=== PATIENT | female | born 1990 | race Caucasian/White ===

== ENCOUNTER 2016-11-20 03:01 | Inpatient (IN) | payer MEDICAID ==
[2016-11-20 04:05] LABS: ABSOLUTE BASOPHILS # (AUTO) 0.2 10^3/uL (0.0-0.2); ABSOLUTE EOSINOPHILS # (AUTO) 0.1 10^3/uL (0.0-0.6); ABSOLUTE LYMPHOCYTES (AUTO) 3.1 10^3/uL (0.5-4.7); ABSOLUTE MONOCYTES (AUTO) 1.1 10^3/uL (0.1-1.4); ABSOLUTE NEUT (AUTO) 7.1 10^3/uL (1.7-8.2); BASOPHILS % (AUTO) 1.3 % (0-2); EOSINOPHILS % (AUTO) 1.3 % (0-6); HEMOGLOBIN 10.7 g/dL (12.0-15.5); HGB HCT DIFFERENCE -1.9; LYMPHOCYTES % (AUTO) 26.9 % (13-45); MEAN CORPUSCULAR HEMOGLOBIN 26.1 pg (27.0-33.4); MEAN CORPUSCULAR HGB CONC 31.5 g/dL (32.0-36.0); MEAN CORPUSCULAR VOLUME 83 fl (80-97); MONOCYTES % (AUTO) 9.8 % (3-13); SEGMENTED NEUTROPHILS % (AUTO) 60.7 % (42-78); WHITE BLOOD COUNT 11.7 10^3/uL (4.0-10.5)
[2016-11-20 04:06] LABS: APPEARANCE,URINE SLIGHTLY-CLOUDY; BILIRUBIN,URINE NEGATIVE (NEGATIVE); GLUCOSE, URINE NEGATIVE (NEGATIVE); KETONES,URINE NEGATIVE (NEGATIVE); LEUKOCYTE ESTERASE,URINE MODERATE (NEGATIVE); NITRITE,URINE NEGATIVE (NEGATIVE); PROTEIN,URINE NEGATIVE (NEGATIVE); UROBILINOGEN,URINE NEGATIVE mg/dL (<2.0)
[2016-11-20] MEDS ORDERED: CITRIC ACID/SODIUM CITRATE ORAL SOLN 15 ML UDCUP ONE (04:21)
[2016-11-20] MEDS ORDERED: METOCLOPRAMIDE HCL INJ/PF 10 MG/2 ML SDV ONE ×2 (04:22→10:19)
[2016-11-20] MEDS ORDERED: CEFAZOLIN 2 GM/D5W RTU 2 GM/50 ML RTUPB IV ONE (04:22)
[2016-11-20] MEDS ORDERED: LIDOCAINE 2%/EPINEPHRINE INJ 20 ML VIAL ONE (04:22)
[2016-11-20] MEDS ORDERED: FAMOTIDINE INJ/PF 20 MG/2 ML SDV IV ONE (04:22)
[2016-11-20] MEDS ORDERED: SODIUM BICARBONATE 8.4% INJ 50 MEQ/50 ML DISP.SYRIN ONE (04:22)
[2016-11-20] MEDS ORDERED: RINGERS SOLUTION,LACTATED 1,000 ML IV PRN (04:27)
[2016-11-20 04:30] LABS: URINE BARBITURATES SCREEN NEGATIVE; URINE METHADONE SCREEN NEGATIVE; URINE OPIATES LOW NEGATIVE; URINE PHENCYCLIDINE SCREEN NEGATIVE
[2016-11-20] MEDS ORDERED: ONDANSETRON HCL INJ/PF 4 MG/2 ML SDV ONE ×2 (04:37→10:19)
[2016-11-20] MEDS ORDERED: MIDAZOLAM 2 MG/2 ML INJ ONE (04:37)
[2016-11-20] MEDS ORDERED: OXYTOCIN 10 UNIT/ML VIAL ONE (04:37)
[2016-11-20] MEDS ORDERED: OXYTOCIN/NORMAL SALINE 0 UNIT/0 ML RTUINJ ONE (04:37)
[2016-11-20] MEDS ORDERED: FENTANYL CITRATE INJ/PF 100 MCG/2 ML AMPUL ONE (04:37)
[2016-11-20] MEDS ORDERED: EPHEDRINE SULFATE INJ 50 MG/1 ML AMPULE ONE (04:44)
--- NOTE | 2016-11-20 04:49 | RADIOLOGY REPORT (SQ) ---
EXAM DESCRIPTION: U/S OB LIMITED COMPLETED DATE/TIME: 11/20/2016 4:25 am REASON FOR STUDY: no PNC; EGA, placenta loc, presentation, EFW COMPARISON: 11/27/2015. TECHNIQUE: Limited transabdominal grayscale ultrasound for evaluation of specific requested obstetri zelda parameters. LIMITATIONS: None. FINDINGS: CERVICAL LENGTH: Not applicable. Greater than 20 weeks. Need transvaginal study if indicat ed. Closed. FHR: 141 beats per minute. Placental location: Fundal. Estimated weight: 4380 g at 35 weeks and 6 days based on biometrics. PRESENTATION: Cephalic. OTHER: No other significant findings. IMPRESSION: LIMITED OBSTETRICAL ULTRASOUND WITH MEASURED PARAMETERS DELINEATED ABOVE. Trimester of : Third trimester - 28 weeks to delivery. TECHNICAL DOCUMENTATION: JOB ID: [id number] [employer]- All Rights Reserved
[2016-11-20 05:00] LABS: ADD HIVPANEL? NO; HIV (1 AND 2) ANTIBODY NEGATIVE (NEGATIVE)
[2016-11-20 05:35] LABS: CHLAM PCR NOT DETECTED (NOT DETECT)
[2016-11-20] MEDS ORDERED: METHYLERGONOVINE MALEATE INJ/PF 0.2 MG/1 ML AMPULE ONE (05:53)
[2016-11-20] MEDS ORDERED: CEFAZOLIN 2 GM/D5W RTU 2 GM/50 ML RTUPB IV PRN (06:00)
[2016-11-20] MEDS ORDERED: SIMETHICONE 80 MG TAB.CHEW PO PRN (06:55)
[2016-11-20] MEDS ORDERED: DIPH/PERTUSS(ACELL)/TETANUS VAC/PF 0.5 ML SYR (>=10YO) IM PRN (06:55)
[2016-11-20] MEDS ORDERED: OXYTOCIN/NORMAL SALINE 1,000 ML IV PRN (06:55)
[2016-11-20] MEDS ORDERED: PROMETHAZINE HCL INJ 25 MG/1 ML VIAL IV PRN ×3 (06:55→07:53)
[2016-11-20] MEDS ORDERED: MEASLES,MUMPS&RUBELLA VACC/PF 0.5 ML VIAL SUBCUT PRN (06:55)
[2016-11-20] MEDS ORDERED: KETOROLAC TROMETHAMINE INJ/PF 30 MG/1 ML SDV IV ONE (07:15)
[2016-11-20] MEDS ORDERED: HYDROMORPHONE HCL INJ/PF 2 MG/ML AMPULE ONE (07:46)
[2016-11-20] MEDS ORDERED: HYDROMORPHONE HCL INJ/PF 2 MG/ML AMPULE IV PRN (07:52)
[2016-11-20] MEDS ORDERED: FENTANYL CITRATE INJ/PF 100 MCG/2 ML AMPUL IV PRN ×3 (07:53)
[2016-11-20] MEDS ORDERED: DIPHENHYDRAMINE HCL 50 MG/ML VIAL IV PRN (07:53)
[2016-11-20] MEDS ORDERED: OXYCODONE-ACETAMINOPHEN 5-325 MG TABLET PO PRN ×2 (07:53)
[2016-11-20] MEDS ORDERED: MORPHINE SULFATE 10 MG/ML INJ IV PRN (07:53)
[2016-11-20] MEDS ORDERED: MEPERIDINE HCL/PF INJ 25 MG/1 ML DISP.SYRIN IV PRN (07:53)
[2016-11-20] MEDS ORDERED: PROMETHAZINE HCL INJ 25 MG/1 ML VIAL IM PRN (07:53)
--- NOTE | 2016-11-20 08:28 | OPERATIVE REPORT E ---
Operative Report NAME: DALIA VAIL : 1990 AGE: 26Y DATE OF SURGERY: 11/20/2016 ROOM: LR200 PREOPERATIVE DIAGNOSIS: Intrauterine at 38 weeks and 3 days, previous section, no care, desires repeat section. POSTOPERATIVE DIAGNOSIS: OPERATION: Low transverse hysterotomy section repeat with [place] tubal ligation. SURGEON: BRENDEN ZIMMERMAN M.D. ANESTHESIA: General. ANESTHESIOLOGIST: Dr. Benoit FINDINGS: Male in cephalic presentation with Apgars of 9 and 9, weight 4145 grams, 21 inches long. ESTIMATED BLOOD LOSS:: 800 mL. TISSUE REMOVED OR ALTERED: Placenta and bilateral fallopian tubes. INDICATIONS FOR STERILIZATION: The patient had came in with no care in this indicating that she desired to give the baby up for adoption. She indicated to several witnesses that she did, indeed, desire a tubal and she emphasized this to myself. Witnesses included Mireille Lewis RN, and Brigida Bell RN, as well as Dr. Benoit anesthesia, and the HR ADMINISTRATOR, Esperanza. PROCEDURE: Patient was taken to the operating room, prepared and draped in a normal sterile fashion in the supine position with a leftward tilt. A transverse skin incision was made with the scalpel and carried through to the underlying layer of fascia with the same scalpel. The fascia was incised in the midline and extended laterally with [place]. The fascia was then dissected from the rectus muscle sharply with [place] and the rectus muscle was divided. Peritoneal cavity was entered bluntly with good visualization of the bladder and the uterus. The bladder blade was inserted and the hysterotomy was nicked in the center and extended laterally with surgeon finger fracture. Attempt to deliver the infant head was difficult secondary to malpresentation so Kiwi was applied, one popoff and two applications. The infant's head was delivered with the second application of the Kiwi and the Kiwi was released. The was then delivered atraumatically. The nose and mouth were suctioned with a suction bulb and cord was clamped and cut and the infant was handed off to waiting multi site leasing consultant. The placenta was removed manually, the uterus was exteriorized and cleared of clots and debris. The hysterotomy was closed with 0 Monocryl in a running locked fashion. The second layer of the same suture was used to imbricate to ensure hemostasis. Attention was turned to the tubal ligation and the left fallopian tube was grasped with a [place] and the mesosalpinx was divided. Two pieces of 2-0 chromic were used to tie off a large section of the fallopian tube. There was a small amount of bleeding in the mesosalpinx and this was tied off with another piece of 2-0 chromic. The intermediate section of the fallopian tube was then cut with Metzenbaums and passed off the field. This was repeated on the right fallopian tube without difficulty. The uterus was returned to the abdomen. The hysterotomy was inspected and found to be hemostatic and the pedicles were all inspected and also found to be intact. The peritoneum and the rectus muscle were reapproximated with a mattress suture of 2-0 chromic. The fascia was closed with 0 Vicryl. The subcutaneous layer was closed with plain catgut. The skin was closed with jose. The patient tolerated the procedure well. Sponge, lap, and needle counts were correct x2 and the patient was taken to recovery in stable condition. DICTATING PHYSICIAN: BRENDEN ZIMMERMAN M.D. [id number] PHY#: [id number] ID: [id number] JOB#: [id number] ACCT: [id number] cc:BRENDEN ZIMMERMAN M.D. > MTDD
--- NOTE | 2016-11-20 09:29 | Delivery Summary ---
Del Sum A-C Datetime Report Generated by CPN: 11/20/2016 09:28 DELIVERY PERSONNEL Delivery Doctor:: Sherron Perry MD Anesthesiologist:: Gemini Benoit MD Labor and Delivery Nurse:: Brigida Lau RN Neonatal Nurse Practitioner:: DERRICK Rios Nursery Nurse:: Lamar Laurent RN Drive Thru Order Taker/CREDIT FRONT OFFICE DEVELOPER: ST [address] Thru Order Taker/CREDIT FRONT OFFICE DEVELOPER: Pastora Iglesias, ST MATERNAL INFORMATION Delivery Anesthesia: Spinal Medications After Delivery: Pitocin Drip 20 Units/1000ml NSS; Methergine 0.2mg IM Meds After Delivery Comment: 20 units pitocin Estimated Blood Loss (ml): 800 Maternal Complications: None LABOR SUMMARY EDC: 12/01/2016 00:00 No. Babies in Womb: 1 Attempted: No Labor Anesthesia: None LABOR INFORMATION Reason for Induction: Not Applicable Oxytocin: N/A Group B Beta Strep: Unknown Steroids Given: None Reason Steroids Not Administered: Not Applicable MEMBRANES Membranes Rupture Method: Artificial Rupture of Membranes: 11/20/2016 05:43 Length of Rupture (hr): 0.03 Amniotic Fluid Color: Light Meconium Amniotic Fluid Amount: Moderate Amniotic Fluid Odor: Normal VAGINAL DELIVERY Episiotomy: None Laceration Extension: N/A Laceration Type: None Laceration Repair: Not Applicable Sponge Count Correct: N/A Sharps Count Correct: N/A CSECTION DELIVERY Primary Indication: Repeat CSection Urgency: Non-Scheduled CSection Incidence: Repeat Labor: Labor Elective: Nonelective CSection Incision: Lower Uterine Transverse BABY A INFORMATION Delivery Date/Time: 11/20/2016 05:45 Method of Delivery: Born in Route : No : N/A Forceps: N/A Vacuum Extraction: N/A Shoulder Dystocia : No PRESENTATION/POSITION BABY A Presentation: Cephalic Cephalic Presentation: Vertex Breech Presentation: N/A PLACENTA INFORMATION BABY A Placenta Method of Delivery: Manual Removal Placenta Status: Delivered SCORES BABY A Heart Rate 1 min: >100 bpm Resp Effort 1 min: Good Cry Reflex Irritability 1 min: Cough or Sneeze or Pulls Away Muscle Tone 1 min: Active Motion Color 1 min: Blue/Pale Resuscitation Effort 1 min: N/A SCORE 1 MIN: 8 Heart Rate 5 min: >100 bpm Resp Effort 5 min: Good Cry Reflex Irritability 5 min: Cough or Sneeze or Pulls Away Muscle Tone 5 min: Active Motion Color 5 min: Body [place], Extremities Blue Resuscitation Effort 5 min: N/A SCORE 5 MIN: 9 INFANT INFORMATION BABY A Gestational Age at Delivery: 38.3 Gestational Status: Early Term- 37- 38.6 Weeks Outcome : Liveborn Infant Condition : Stable Sex: Male IDENTIFICATION BABY A Verification Date/Time: 11/20/2016 05:57 ID Band Number: [id number] Mother's Name Verified: Yes RN Verifying Infant: Fernando Groves, RN _ LLinnette Nolascob, RN WEIGHT/LENGTH BABY A Infant Birthweight (gm): 4145 Weight (lb): 9 Weight (oz): 2 Infant Length (in): 21.00 Length (cm): 53.34 CORD INFORMATION BABY A No. Cord Vessels: 3 Nuchal Cord : N/A Suction: None ASSESSMENT BABY A Complications: None Physical Findings at Delivery: Within Normal Limits Respirations: Appears Normal Skin to Skin: No (Annotations: Mother chooses not to see or hold . ) Director Behavioral Health/ALS Called : No Care By: DERRICK Lomeli Transferred To: Nursery BABY B INFORMATION : N/A
[2016-11-20] MEDS: OXYCODONE HCL IR 5 MG TABLET PO PRN ×2 (09:51→17:48)
[2016-11-20] MEDS: DOCUSATE SODIUM 100 MG CAPSULE PO SCH ×2 (09:53→17:48)
[2016-11-20] MEDS: PRENATAL VITAMIN W-O CA NO5/FE FUMARATE/FA CAPSULE PO SCH (09:53)
[2016-11-20] MEDS ORDERED: DEXAMETHASONE SOD PHOSPHATE INJ 4 MG/1 ML VIAL ONE (10:19)
[2016-11-20] MEDS ORDERED: VECURONIUM BROMIDE INJ 10 MG VIAL IV ONE (10:19)
[2016-11-20] MEDS ORDERED: KETOROLAC TROMETHAMINE 60 MG/2 ML SDV ONE (10:19)
[2016-11-20] MEDS ORDERED: SUCCINYLCHOLINE CHLORIDE INJ 200 MG/10 ML VIAL ONE (10:19)
--- NOTE | 2016-11-20 10:33 | PDOC PROGRESS REPORT ---
Subjective-OB Subjective: Post Delivery Day: 26 year old. Denies any needs at this time Sitting up in bed, pain under control, states she is hot, drinking fluids, no nausea, giving baby up for adoption Physical Exam (OB) Vital Signs: Temp Pulse Resp BP Pulse Ox 98.2 F 128 H 16 121/77 98 11/20/16 10:08 11/20/16 10:08 11/20/16 10:08 11/20/16 10:08 11/20/16 10:08 Intake & Output 11/19/16 11/20/16 11/21/16 06:59 06:59 06:59 Weight 110 kg Objective-Diagnostic Laboratory: 11/20/16 03:50 11/20/16 11/20/16 11/20/16 03:20 03:44 03:50 WBC 11.7 H RBC 4.10 Hgb 10.7 L Hct 34.0 L MCV 83 MCH 26.1 L MCHC 31.5 L RDW 15.0 H Plt Count 293 Seg Neutrophils % 60.7 Lymphocytes % 26.9 Monocytes % 9.8 Eosinophils % 1.3 Basophils % 1.3 Absolute Neutrophils 7.1 Absolute Lymphocytes 3.1 Absolute Monocytes 1.1 Absolute Eosinophils 0.1 Absolute Basophils 0.2 Urine Color YELLOW Urine Appearance SLIGHTLY-CLOUDY Urine pH 6.0 Ur Specific [place] 1.010 Urine Protein NEGATIVE Urine Glucose (UA) NEGATIVE Urine Ketones NEGATIVE Urine Blood LARGE H Urine Nitrite NEGATIVE Ur Leukocyte Esterase MODERATE H Blood Type O POSITIVE Antibody Screen NEGATIVE Assessment and Plan(PN) - Assessment and Plan (1) with plans to adopt out baby Qualifiers: Trimester: unspecified trimester Qualified Code(s): Z34.90 - Encounter for supervision of normal , unspecified, unspecified trimester Is this a current diagnosis for this admission?: Yes (2) No care in current Qualifiers: Trimester: unspecified trimester Qualified Code(s): O09.30 - Supervision of with insufficient care, unspecified trimester Is this a current diagnosis for this admission?: Yes (4) Anemia due to acute blood loss Is this a current diagnosis for this admission?: Yes - Time Spent with Patient Time with patient: Less than 15 minutes Medications reviewed and adjusted accordingly: Yes - Disposition Anticipated Discharge: Home Within: within 48 hours
[2016-11-20] MEDS: KETOROLAC TROMETHAMINE INJ/PF 30 MG/1 ML SDV IV SCH ×2 (13:25→23:28)
[2016-11-20] MEDS ORDERED: NIFEDIPINE 30 MG TAB.ER.24 PO ONE (13:30)
[2016-11-20 13:37] LABS: URINE CREATININE 343.6 mg/dL (16-327)
[2016-11-20 16:29] LABS: HGB HCT DIFFERENCE -0.8; MEAN CORPUSCULAR HEMOGLOBIN 26.4 pg (27.0-33.4); MEAN CORPUSCULAR HGB CONC 32.2 g/dL (32.0-36.0); MEAN CORPUSCULAR VOLUME 82 fl (80-97); RED BLOOD COUNT 3.17 10^6/uL (3.72-5.28); RED CELL DISTRIBUTION WIDTH 15.1 % (11.5-14.0); WHITE BLOOD COUNT 21.7 10^3/uL (4.0-10.5)
[2016-11-20 16:38] LABS: ALANINE AMINOTRANSFERASE 17 U/L (9-52); ALKALINE PHOSPHATASE 121 U/L (38-126); ANION GAP 8 (5-19); ASPARTATE AMINO TRANSFERASE 22 U/L (14-36); BILIRUBIN,DIRECT 0.3 mg/dL (0.0-0.4); BILIRUBIN,TOTAL 0.3 mg/dL (0.2-1.3); BLOOD UREA NITROGEN 11 mg/dL (7-20); CALCIUM 9.3 mg/dL (8.4-10.2); CARBON DIOXIDE 21 mmol/L (22-30); CHLORIDE 106 mmol/L (98-107); CREATININE RESULT 0.76 mg/dL (0.52-1.25); GLUCOSE 106 mg/dL (75-110); LDH 481 U/L (313-618); POTASSIUM 4.8 mmol/L (3.6-5.0); SODIUM 135.4 mmol/L (137-145); TOTAL PROTEIN 5.9 g/dL (6.3-8.2); URIC ACID 4.7 mg/dL (2.5-6.2)
[2016-11-20 17:15] LABS: BAND NEUTROPHILS % (MANUAL) 1 % (3-5); BASOPHILS % (MANUAL) 0 % (0-2); EOSINOPHILS % (MANUAL) 0 % (0-6); LYMPHOCYTES % (MANUAL) 6 % (13-45); TOTAL CELLS COUNTED 100
[2016-11-20 17:19] LABS: ANISOCYTOSIS SLIGHT; HYPOCHROMASIA SLIGHT; OVALOCYTES SLIGHT; POIKILOCYTOSIS SLIGHT; POLYCHROMASIA SLIGHT
[2016-11-20 17:20] LABS: HEMOGLOBIN 8.4 g/dL (12.0-15.5)
[2016-11-20] MEDS: CEFAZOLIN 2 GM/D5W RTU 2 GM/50 ML RTUPB IV SCH ×2 (20:04→23:29)
[2016-11-20] MEDS: RINGERS SOLUTION,LACTATED 1,000 ML IV PRN (23:29)
[2016-11-21] MEDS: CEFAZOLIN 2 GM/D5W RTU 2 GM/50 ML RTUPB IV SCH ×4 (05:20→23:47)
[2016-11-21] MEDS: IBUPROFEN 800 MG TABLET PO SCH ×4 (05:20→23:47)
[2016-11-21 07:12] LABS: HEMATOCRIT 19.4 % (36.0-47.0); HGB HCT DIFFERENCE -0.2; MEAN CORPUSCULAR HEMOGLOBIN 26.7 pg (27.0-33.4); MEAN CORPUSCULAR HGB CONC 32.8 g/dL (32.0-36.0); MEAN CORPUSCULAR VOLUME 81 fl (80-97); RED BLOOD COUNT 2.39 10^6/uL (3.72-5.28); RED CELL DISTRIBUTION WIDTH 15.1 % (11.5-14.0); WHITE BLOOD COUNT 11.6 10^3/uL (4.0-10.5)
[2016-11-21 07:20] LABS: HEMOGLOBIN 6.4 g/dL (12.0-15.5)
[2016-11-21 07:43] LABS: HEPATITIS C VIRUS AB <0.1 s/co ratio (0.0-0.9)
[2016-11-21] MEDS: PRENATAL VITAMIN W-O CA NO5/FE FUMARATE/FA CAPSULE PO SCH (09:37)
[2016-11-21] MEDS: RINGERS SOLUTION,LACTATED 1,000 ML IV PRN (09:37)
[2016-11-21] MEDS: DOCUSATE SODIUM 100 MG CAPSULE PO SCH ×2 (09:37→17:55)
--- NOTE | 2016-11-21 10:45 | PDOC PROGRESS REPORT ---
Subjective-OB Subjective: Post Delivery Day: 26 year old. Denies any needs at this time Physical Exam (OB) Vital Signs: Temp Pulse Resp BP Pulse Ox 98.0 F 77 16 101/52 L 97 11/21/16 08:00 11/21/16 08:00 11/21/16 08:00 11/21/16 08:00 11/21/16 08:00 Intake & Output 11/20/16 11/21/16 11/22/16 06:59 06:59 06:59 Output Total 1650 Balance -1650 Weight 110 kg - PIH/Pre-Eclampsia Clonus: Negative Headache: Absent Epigastric Pain: No Visual Changes: No - Incision: Dressing - Lochia Lochia Amount: Scant < 10 ml Lochia Color: Rubra/Red - Abdomen Description: Tender, Firm Hernia Present: No Bowel Sounds: Normoactive Flatus Presence: Present Stool: No Fundal Description: Firm, Midline Fundal Height: u/u - u/2 Objective-Diagnostic Laboratory: 11/21/16 06:49 11/20/16 15:42 11/20/16 11/20/16 11/21/16 15:42 15:42 06:49 WBC 21.7 H 11.6 H RBC 3.17 L 2.39 L Hgb 8.4 L D 6.4 L Hct 26.0 L 19.4 L MCV 82 81 MCH 26.4 L 26.7 L MCHC 32.2 32.8 RDW 15.1 H 15.1 H Plt Count 212 224 Seg Neutrophils % Not Reportable Lymphocytes % Not Reportable Monocytes % Not Reportable Eosinophils % Not Reportable Basophils % Not Reportable Absolute Neutrophils Not Reportable Absolute Lymphocytes Not Reportable Absolute Monocytes Not Reportable Absolute Eosinophils Not Reportable Absolute Basophils Not Reportable Sodium 135.4 L Potassium 4.8 Chloride 106 Carbon Dioxide 21 L Anion Gap 8 BUN 11 Creatinine 0.76 Est GFR ( Amer) > 60 Est GFR (Non-Af Amer) > 60 Glucose 106 Uric Acid 4.7 Calcium 9.3 Total Bilirubin 0.3 AST 22 ALT 17 Alkaline Phosphatase 121 Total Protein 5.9 L Albumin 3.0 L Assessment and Plan(PN) - Time Spent with Patient Medications reviewed and adjusted accordingly: Yes - Disposition Anticipated Discharge: Home
[2016-11-21] MEDS: NIFEDIPINE 30 MG TAB.ER.24 PO SCH (11:20)
[2016-11-21] MEDS: OXYCODONE HCL IR 5 MG TABLET PO PRN (17:56)
[2016-11-22] MEDS: RINGERS SOLUTION,LACTATED 1,000 ML IV PRN (06:01)
[2016-11-22] MEDS: CEFAZOLIN 2 GM/D5W RTU 2 GM/50 ML RTUPB IV SCH ×2 (06:02→12:26)
[2016-11-22] MEDS: IBUPROFEN 800 MG TABLET PO SCH ×2 (06:02→12:24)
[2016-11-22] MEDS: OXYCODONE HCL IR 5 MG TABLET PO PRN (08:08)
--- NOTE | 2016-11-22 09:40 | PDOC PROGRESS REPORT ---
Subjective-OB Subjective: Post Delivery Day: 26 year old. Denies any needs at this time Doing well, feeling better today, ready to go home, eating, + gas, no nausea, scant lochia, breast soft, voiding, continues with adoption Physical Exam (OB) Vital Signs: Temp Pulse Resp BP Pulse Ox 98.3 F 86 16 123/75 99 11/22/16 07:58 11/22/16 07:58 11/22/16 07:58 11/22/16 07:58 11/22/16 07:58 Intake & Output 11/21/16 11/22/16 11/23/16 06:59 06:59 06:59 Output Total 1650 Balance -1650 Weight 110 kg - PIH/Pre-Eclampsia Clonus: Negative Headache: Absent Epigastric Pain: No Visual Changes: No - Dressing Removed: No - opsite Incision: Well Approximated - Bilateral Tubal Ligation Dressing Removed: Yes Site: Dressing, Draining - Lochia Lochia Amount: Scant < 10 ml Lochia Color: Rubra/Red - Abdomen Description: Soft Hernia Present: No Fundal Description: Firm, Midline Fundal Height: u/u - u/2 Objective-Diagnostic Laboratory: 11/21/16 06:49 11/20/16 15:42 Assessment and Plan(PN) - Assessment and Plan (1) with plans to adopt out baby Qualifiers: Trimester: unspecified trimester Qualified Code(s): Z34.90 - Encounter for supervision of normal , unspecified, unspecified trimester Is this a current diagnosis for this admission?: Yes (2) No care in current Qualifiers: Trimester: unspecified trimester Qualified Code(s): O09.30 - Supervision of with insufficient care, unspecified trimester Is this a current diagnosis for this admission?: Yes (4) Anemia due to acute blood loss Is this a current diagnosis for this admission?: Yes - Time Spent with Patient Time with patient: Less than 15 minutes Medications reviewed and adjusted accordingly: Yes - Disposition Anticipated Discharge: Home Within: Other - home today
--- NOTE | 2016-11-22 09:46 | PDOC DISCHARGE SUMMARY ---
Final Diagnosis Discharge Date: 11/22/16 - Final Diagnosis (1) with plans to adopt out baby Is this a current diagnosis for this admission?: Yes (2) No care in current Is this a current diagnosis for this admission?: Yes (3) Delivery by emergency caesarean section Is this a current diagnosis for this admission?: Yes (4) Anemia due to acute blood loss Is this a current diagnosis for this admission?: Yes Discharge Data - Discharge Medication Home Medications: Ibuprofen [Motrin 800 mg Tablet] 800 mg PO Q6 #30 tablet 11/30/15 Ibuprofen [Motrin 800 mg Tablet] 800 mg PO Q6 #60 tablet 11/22/16 Nifedipine [Procardia XL 30 mg Tablet] 30 mg PO DAILY #0 tab.er.24 11/22/16 Oxycodone HCl [Oxy-Ir 5 mg Tablet] 5 mg PO Q4HP PRN #30 tablet 11/22/16 Pnv W-O Ca No5/Fe Fumarate/FA [-U Multiple Vitamin Capsule] 1 cap PO DAILY #0 capsule 11/22/16 Reason(s) for Admission: Ceasarean Section-Repeat Admission Note: No Care Intrapartum Procedure(s): : Low Cervical, Transverse - [place] Data Baby 1 Male Home with Mother: No - baby for adoption - Diagnosis Test Laboratory: Temp Pulse Resp BP Pulse Ox 98.3 F 86 16 123/75 99 11/22/16 07:58 11/22/16 07:58 11/22/16 07:58 11/22/16 07:58 11/22/16 07:58 11/20/16 11/20/16 11/20/16 03:20 03:50 15:42 RBC 4.10 3.17 L Hgb 10.7 L 8.4 L D Hct 34.0 L 26.0 L Urine Opiates Screen NEGATIVE 11/21/16 06:49 RBC 2.39 L Hgb 6.4 L Hct 19.4 L Urine Opiates Screen - Discharge information/Instructions Discharge Activity: Activity As Tolerated, No Lifting Over 10 Pounds, No Lifting /Push/Pulling, Non-Ambulatory Child, Pelvic Rest Discharge Diet: As Tolerated, Regular Disposition: HOME, SELF-CARE Follow up with: [facility] in: 1, Weeks
[2016-11-22] MEDS: DOCUSATE SODIUM 100 MG CAPSULE PO SCH (09:49)
[2016-11-22] MEDS: NIFEDIPINE 30 MG TAB.ER.24 PO SCH (09:49)
[2016-11-22] MEDS: PRENATAL VITAMIN W-O CA NO5/FE FUMARATE/FA CAPSULE PO SCH (09:49)
[2016-11-22 11:59] VITALS: BP 101/52
== END 2016-11-22 12:30 | disposition home or self-care (01) | DRG 765 ==
LOC: LC 03:01 → LR 04:02 → 2N 08:11
PROVIDERS: ADMIT Obstetrics & Gynecology; ATTEND Obstetrics & Gynecology
PROC: 10D00Z1 Extraction of Products of Conception, Low, Open Approach (ICD-10-PCS; principal; 2016-11-20)
PROC: 0UB70ZZ Excision of Bilateral Fallopian Tubes, Open Approach (ICD-10-PCS; 2016-11-20)
PROC: 4A1HXCZ Monitoring of Products of Conception, Cardiac Rate, External Approach (ICD-10-PCS; 2016-11-20)
DX: O34.211 Maternal care for low transverse scar from previous cesarean delivery (principal); D62 Acute posthemorrhagic anemia; O99.02 Anemia complicating childbirth; Z3A.38 38 weeks gestation of pregnancy; Z30.2 Encounter for sterilization; Z37.0 Single live birth; Z87.891 Personal history of nicotine dependence
CPT/HCPCS: 1961; 36415; 76815; 80053; 80307; 81005; 82570; 83615; 84156; 84550; 85025; 85027; 86592; 86701; 86762; 86803; 86804; 86850; 86900; 86901; 87340; 87491; 87591; 88302; 88307; 94799; J0330; J0690; J1100; J1170; J1885; J2210; J2250; J2405; J2590; J2765; J3010; J3490; J7120; S0028

== ENCOUNTER 2016-11-25 18:15 | Emergency (ER) | payer MEDICAID ==
[2016-11-25] MEDS ORDERED: NORMAL SALINE 1000 ML 1,000 ML IV PRN (18:39)
--- NOTE | 2016-11-25 18:43 | ER Document Report ---
ED Medical Screen (RME) - General Chief Complaint: Wound Recheck Stated Complaint: POST PAIN/HEADACHE Time Seen by Provider: 11/25/16 18:38 Mode of Arrival: Ambulatory Information source: Patient TRAVEL OUTSIDE OF THE [place] IN LAST 30 DAYS: No - HPI Patient complains to provider of: headache, back pain, right leg pain, heart racing Onset: Yesterday Onset/Duration: Persistent Quality of pain: Achy Severity: Moderate Pain Level: 3 Notes: 11/25/16 18:41 Patient is a 26-year-old female who is and now 5 days , complaining of headache, increased lower abdominal pain, with back pain, palpitations with heart racing, feet swelling and ringing in her ears - Related Data Allergies/Adverse Reactions: latex [Latex] Allergy (Intermediate, Verified 11/25/16 18:22) rash acetaminophen [From Tylenol] Allergy (Verified 11/25/16 18:22) tramadol HCl [From Ultram] Allergy (Verified 11/25/16 18:22) Past Medical History Neurological Medical History: Reports: Hx Migraine Renal/ Medical History: Denies: Hx Peritoneal Dialysis - Immunizations Hx Diphtheria, Pertussis, Tetanus Vaccination: Yes - 05/2012 Physical Exam - Vital signs Vitals: Temp Pulse Resp BP Pulse Ox 98.8 F 123 H 18 142/80 H 100 11/25/16 18:20 11/25/16 18:20 11/25/16 18:20 11/25/16 18:20 11/25/16 18:20 Course - Vital Signs Vital signs: Temp Pulse Resp BP Pulse Ox 98.8 F 123 H 18 142/80 H 100 11/25/16 18:20 11/25/16 18:20 11/25/16 18:20 11/25/16 18:20 11/25/16 18:20
[2016-11-25 19:23] LABS: APPEARANCE,URINE CLEAR; BILIRUBIN,URINE NEGATIVE (NEGATIVE); GLUCOSE, URINE NEGATIVE (NEGATIVE); KETONES,URINE NEGATIVE (NEGATIVE); LEUKOCYTE ESTERASE,URINE NEGATIVE (NEGATIVE); NITRITE,URINE NEGATIVE (NEGATIVE); PROTEIN,URINE NEGATIVE (NEGATIVE); URINE SPECIFIC GRAVITY 1.015; UROBILINOGEN,URINE NEGATIVE mg/dL (<2.0)
--- NOTE | 2016-11-25 19:52 | ER Document Report ---
ED General - General Chief Complaint: Wound Recheck Stated Complaint: POST PAIN/HEADACHE Time Seen by Provider: 11/25/16 18:38 Mode of Arrival: Ambulatory Notes: The patient is a 26-year-old female, and tubal ligation 5 days ago, presents with multiple complaints, including shortness of breath, pain at the left side of her surgical wound and a dull frontal headache. She is also having vaginal bleeding and swollen right leg pain during this time. Patient states that she is only short of breath after walking up multiple stairs. She is not short of breath at rest. She denies hemoptysis, syncope, chest pain, fevers, nausea, vomiting, diarrhea, constipation, numbness, tingling or blurry vision. She is not breast-feeding. TRAVEL OUTSIDE OF THE [place] IN LAST 30 DAYS: No - Related Data Allergies/Adverse Reactions: latex [Latex] Allergy (Intermediate, Verified 11/25/16 18:22) rash acetaminophen [From Tylenol] Allergy (Verified 11/25/16 18:22) tramadol HCl [From Ultram] Allergy (Verified 11/25/16 18:22) Past Medical History - General Information source: Patient - Social History Smoking Status: Never Smoker Frequency of alcohol use: None Drug Abuse: None Family History: Hypertension, Malignancy Patient has suicidal ideation: No Patient has homicidal ideation: No - Past Medical History Cardiac Medical History: Reports: Hx Hypertension Neurological Medical History: Reports: Hx Migraine Renal/ Medical History: Denies: Hx Peritoneal Dialysis Past Surgical History: Reports: Hx Section - Immunizations Hx Diphtheria, Pertussis, Tetanus Vaccination: Yes - 05/2012 Hx Pneumococcal Vaccination: 06/27/12 Review of Systems - Review of Systems Notes: REVIEW OF SYSTEMS: CONSTITUTIONAL: -fevers, -chills EENT: -eye pain, -difficulty swallowing, -nasal congestion CARDIOVASCULAR:-chest pain, -syncope. RESPIRATORY: -cough, +SOB GASTROINTESTINAL: +abdominal pain, -nausea, -vomiting, -diarrhea GENITOURINARY: -dysuria, -hematuria, +vaginal bleeding MUSCULOSKELETAL: +right leg pain, -back pain, -neck pain SKIN: -rash or skin lesions. HEMATOLOGIC: -easy bruising or bleeding. LYMPHATIC: -swollen, enlarged glands. NEUROLOGICAL: -altered mental status or loss of consciousness, +headache, - neurologic symptoms PSYCHIATRIC: -anxiety, -depression. ALL OTHER SYSTEMS REVIEWED AND NEGATIVE. Physical Exam - Vital signs Vitals: Temp Pulse Resp BP Pulse Ox 98.8 F 123 H 18 142/80 H 100 11/25/16 18:20 11/25/16 18:20 11/25/16 18:20 11/25/16 18:20 11/25/16 18:20 - Notes Notes: PHYSICAL EXAMINATION: GENERAL: Well-appearing, well-nourished and in no acute distress. HEAD: Atraumatic, normocephalic. EYES: Pupils equal round and reactive to light, extraocular movements intact, sclera anicteric, conjunctiva are normal. ENT: nares patent, oropharynx clear without exudates. Moist mucous membranes. NECK: Normal range of motion, supple without lymphadenopathy LUNGS: Breath sounds clear to auscultation bilaterally and equal. No wheezes rales or rhonchi. HEART: Regular rate and rhythm without murmurs ABDOMEN: Surgical wound with mild tenderness over left lower abdomen, soft, normoactive bowel sounds. No guarding, no rebound. No masses appreciated. EXTREMITIES: Mild right calf swelling, normal range of motion, no pitting or edema. No cyanosis. NEUROLOGICAL: Cranial nerves grossly intact. Normal speech, normal gait. Normal sensory and motor exams. PSYCH: Normal mood, normal affect. SKIN: Warm, Dry, normal turgor, no rashes or lesions noted. Course - Re-evaluation Re-evalutation: Patient's hemoglobin is 7.4, but she is not having active bleeding at this time. She has been lower in the past and was supposed to begin iron. Spoke to patient about concern for PE due to recent surgery and tachycardia on arrival, but patient refuses her CTA because she is not short of breath and is not having chest pain currently. Patient's labs are unremarkable, other than a slight leukocytosis which may be reactive from her recent surgery. No signs of infection around her scar. Pt's US shows official thrombophlebitis, so will begin aspirin to treat this. Her headache resolved after Motrin and she is not having any neuro symptoms to suggest a venous sinus thrombosis. Will have patient leave AGAINST MEDICAL ADVICE due to her refusal for the CTA chest. She says she has an appointment with the OB tomorrow morning and will follow- up tomorrow. Patient is of sound mind and able to make her own decisions. She verbalized the risks back to me. Given strict return precautions and she understands. - Vital Signs Vital signs: Temp Pulse Resp BP Pulse Ox 98.8 F 123 H 19 121/68 99 11/25/16 18:20 11/25/16 18:20 11/25/16 22:01 11/25/16 22:01 11/25/16 22:01 - Laboratory Result Diagrams: 11/25/16 20:11 11/25/16 20:11 Laboratory results interpreted by me: 11/25/16 11/25/16 11/25/16 18:40 20:11 20:11 WBC 11.4 H RBC 2.76 L Hgb 7.3 L Hct 22.9 L MCH 26.4 L MCHC 31.7 L RDW 16.0 H Plt Count 506 H Chloride 109 H Carbon Dioxide 18 L Lactate Dehydrogenase 745 H Albumin 3.4 L Urine Blood SMALL H - Diagnostic Test Radiology reviewed: Image reviewed, Reports reviewed Radiology results interpreted by me: CXR: NAD CTA: Pt refused IV contrast in the middle of the scan. - EKG Interpretation by Me EKG shows normal: Sinus rhythm, [place], Intervals, QRS Complexes, ST-T Waves Rate: Normal Discharge - Discharge Clinical Impression: Encounter for wound re-check Thrombophlebitis leg superficial Qualifiers: Laterality: right Qualified Code(s): I80.01 - Phlebitis and thrombophlebitis of superficial vessels of right lower extremity Condition: Stable Disposition: AGAINST MEDICAL ADVICE Additional Instructions: Your hemoglobin is 7.3 today. You were found to have superficial blood clots on your ultrasound. Take 325 mg ASA daily. Since you declined the CAT scans today, you must follow-up with your OB tomorrow. Return immediately to the ER if you notice any worsening shortness of breath, chest pain or abdominal pain. SHORTNESS OF BREATH OR DYSPNEA: You were evaluated for shortness of breath, or dyspnea. Dyspnea has many causes, and some are more serious than others. Sometimes it's impossible to diagnose the cause of dyspnea with the tests that are available on an emergency basis. Based on our evaluation today, you do not need hospitalization now. We found no evidence of pneumonia, collapsed lung, blood clots in the lung, tumors , or heart failure. Causes of non-specific dyspnea can include asthma or bronchospasm, hyperventilation, emotional distress, heart disease, emphysema, fibrosis of the lung, and stiffness of the chest wall. In healthy individuals with a single episode, it's sometimes reasonable to do nothing but wait to see if the problem occurs again. Additional tests used to evaluate dyspnea can include cardiac stress testing, echocardiography, pulmonary function testing, CAT scan of the chest, bronchoscopy or pulmonary biopsy. Return if shortness of breath persists or worsens, or if you develop chest pain, fever, cough, confusion, or fainting. NORMAL EXAM AND WORKUP: At this time, your examination and workup show no significant abnormality. No significant abnormal physical findings were noted. All laboratory, EKG, and imaging (x-ray, CT scans, ultrasound) studies that were ordered show no significant abnormality. Although your examination and all studies that were ordered showed no significant abnormal finding, there are no examinations and no studies that are 100% accurate. There is always the possibility that some abnormality could exist and not be detected with physical examination or within the limits and capabilities of laboratory and other studies. You should return or follow up as you were instructed on your visit today for further evaluation if your symptoms do not resolve. FOLLOW-UP CARE: If you have been referred to a physician for follow-up care, call the physician s office for an appointment as you were instructed or within the next two days. If you experience worsening or a significant change in your symptoms, notify the physician immediately or return to the Emergency Department at any time for re-evaluation. Anemia You have been found to have a significant anemia (a lower than normal amount of red blood cells). Anemia can be due to iron deficiency, vitamin deficiency, abnormal bleeding, or internal diseases. Usually, further tests are necessary to find the exact cause of the anemia. The most common cause of anemia is iron deficiency, often brought on by blood loss. This can be treated with iron supplements. If this appears to be the most likely cause, iron tablets may be prescribed even before all tests are complete. Contact the doctor at once if you note black or tarry-looking stools, bloody vomiting, shortness of breath, chest pain, or faintness. Referrals: BRENDEN ZIMMERMAN MD [ACTIVE STAFF] - Follow up as needed
[2016-11-25] MEDS ORDERED: KETOROLAC TROMETHAMINE INJ/PF 30 MG/1 ML SDV IV ONE (20:23)
[2016-11-25] MEDS ORDERED: OXYCODONE HCL IR 5 MG TABLET PO ONE (20:23)
[2016-11-25 20:24] LABS: ABSOLUTE BASOPHILS # (AUTO) 0.1 10^3/uL (0.0-0.2); ABSOLUTE EOSINOPHILS # (AUTO) 0.4 10^3/uL (0.0-0.6); ABSOLUTE LYMPHOCYTES (AUTO) 2.3 10^3/uL (0.5-4.7); ABSOLUTE MONOCYTES (AUTO) 0.8 10^3/uL (0.1-1.4); ABSOLUTE NEUT (AUTO) 7.8 10^3/uL (1.7-8.2); EOSINOPHILS % (AUTO) 3.3 % (0-6); HEMATOCRIT 22.9 % (36.0-47.0); LYMPHOCYTES % (AUTO) 20.5 % (13-45); MEAN CORPUSCULAR HEMOGLOBIN 26.4 pg (27.0-33.4); MEAN CORPUSCULAR HGB CONC 31.7 g/dL (32.0-36.0); MEAN CORPUSCULAR VOLUME 83 fl (80-97); MONOCYTES % (AUTO) 7.3 % (3-13); RED BLOOD COUNT 2.76 10^6/uL (3.72-5.28); SEGMENTED NEUTROPHILS % (AUTO) 67.9 % (42-78); WHITE BLOOD COUNT 11.4 10^3/uL (4.0-10.5)
--- NOTE | 2016-11-25 20:26 | RADIOLOGY REPORT (SQ) ---
EXAM DESCRIPTION: CHEST PA/LAT COMPLETED DATE/TIME: 11/25/2016 7:58 pm REASON FOR STUDY: right chest pain COMPARISON: None. EXAM PARAMETERS: NUMBER OF VIEWS: two views TECHNIQUE: Digital Frontal and Lateral radiographic views of the chest acquired. RADIATION DOSE: NA LIMITATIONS: none FINDINGS: LUNGS AND PLEURA: No opacities, masses or pneumothorax. No pleural effusion. MEDIASTINUM AND HILAR STRUCTURES: No masses or contour abnormalities. HEART AND VASCULAR STRUCTURES: Heart normal size. No evidence for failure. BONES: No acute findings. HARDWARE: None in the chest. OTHER: No other significant finding. IMPRESSION: NO SIGNIFICANT RADIOGRAPHIC FINDING IN THE CHEST. TECHNICAL DOCUMENTATION: JOB ID: [id number] [email or web address]- All Rights Reserved
[2016-11-25 20:28] LABS: HEMOGLOBIN 7.3 g/dL (12.0-15.5)
[2016-11-25 20:36] LABS: ALANINE AMINOTRANSFERASE 24 U/L (9-52); ALBUMIN 3.4 g/dL (3.5-5.0); ALKALINE PHOSPHATASE 118 U/L (38-126); ANION GAP 11 (5-19); ASPARTATE AMINO TRANSFERASE 26 U/L (14-36); BILIRUBIN,DIRECT 0.2 mg/dL (0.0-0.4); BILIRUBIN,TOTAL 0.4 mg/dL (0.2-1.3); BLOOD UREA NITROGEN 11 mg/dL (7-20); CALCIUM 9.3 mg/dL (8.4-10.2); CARBON DIOXIDE 18 mmol/L (22-30); CHLORIDE 109 mmol/L (98-107); CREATININE RESULT 0.71 mg/dL (0.52-1.25); GLUCOSE 91 mg/dL (75-110); LDH 745 U/L (313-618); POTASSIUM 4.6 mmol/L (3.6-5.0); SODIUM 138.4 mmol/L (137-145); TOTAL PROTEIN 6.5 g/dL (6.3-8.2); URIC ACID 5.4 mg/dL (2.5-6.2)
[2016-11-25] MEDS ORDERED: ASPIRIN 325 MG TABLET PO ONE (21:43)
[2016-11-26 00:46] VITALS: BP 116/69
--- NOTE | 2016-11-26 01:01 | RADIOLOGY REPORT (SQ) ---
EXAM DESCRIPTION: CTA CHEST COMPLETED DATE/TIME: 11/26/2016 12:38 am REASON FOR STUDY: tachycardia, SOB, 5 days ago COMPARISON: None. TECHNIQUE: CT scan of the chest performed using helical scanning technique with dynamic intravenous contrast injection. Images reviewed with lung, soft tissue and bone windows. Reconstructed coronal and sagittal MPR images reviewed. Additional 3 dimensional post-processing performed to develop Maximal Intensity Projection images (CT P). All images stored on PACS. All CT scanners at this facility use dose modulation, iterative reconstruction, and/or weight based d osing when appropriate to reduce radiation dose to as low as reasonably achievable (ALARA). [facility]: Dose Right [facility]: CareDose [facility]: Dose Right [facility]: Teradose 4D [facility]: [employer] CONTRAST TYPE AND DOSE: contrast/concentration: Isovue 370.00 mg/ml; Total Contrast Delivered: 15.0 ml; Total Saline Delivered: 80.0 ml RENAL FUNCTION: None required. The patient is less than 50 years old. RADIATION DOSE: 23.15 . LIMITATIONS: Restaurant District Manager views only, 2 images. FINDINGS: After IV test bolus was administered, patient declined further examination. Restaurant District Manager views only, 2 images: Adequate lung volumes, no demonstrated acute cardiopulmonary finding, mi ld thoracic levo convexity. No transaxial CT imaging obtained. IMPRESSION: Incomplete exam. TECHNICAL DOCUMENTATION: JOB ID: [id number] Quality ID # [id number]: Final reports with documentation of one or more dose reduction techniques (e.g., Au tomated exposure control, adjustment of the mA and/or kV according to patient size, use of iterative reconstruction technique) 2010 [email or web address]- All Rights Reserved
--- NOTE | 2016-11-26 13:01 | EKG REPORT ---
SEVERITY:- NORMAL ECG - SINUS RHYTHM : Confirmed by: Scarlet Ariza MD 26-Nov-2016 13:01:11
--- NOTE | 2016-11-26 14:02 | XCELERA REPORT ---
[address] [address] Lower Extremity Venous Evaluation Name: DALIA VAIL Age: 26 yrs Gender: Female : 1990 Patient Status: Emergency Patient Location: ER Study Date: 11/25/2016 08:54 PM Procedure: Color flow and duplex imaging of the veins of the right lower extremity as well as the left Common Femoral vein. Reason For Study: right leg pain Ordering Physician: LOYDA PERES Performed By: Babita Hdez Right Sided Venous Evaluation Abnormal filling, no flow in enlarged varicosity, medial knee area. Otherwise normal vessel filling wall to wall, compression and augmentation as well as Colour flow down to the infrageniculate veins. Left Sided Venous Evaluation The left common femoral vein is fully compressible. Spontaneous and phasic flow is present in the left common femoral vein. Critical Findings Called in to the ER. Interpretation Summary No duplex evidence of DVT or obstruction in the right lower extremity nor in the left Common Femoral vein. : LOYDA PERES > Edgardo Iglesias
== END 2016-11-26 00:43 | disposition left against medical advice (07) ==
LOC: ER 18:15
DX: I80.01 Phlebitis and thrombophlebitis of superficial vessels of right lower extremity (principal); R51 Headache; G89.18 Other acute postprocedural pain; Z98.890 Other specified postprocedural states; R06.02 Shortness of breath; N93.9 Abnormal uterine and vaginal bleeding, unspecified; M79.89 Other specified soft tissue disorders; M79.604 Pain in right leg
CPT/HCPCS: 93005; 99284; 96374; 36415; 87086; 83615; 84550; 85025; 80053; 81001; 93971 ×2; 71020; 93010; J1885; J3490; 71275

== ENCOUNTER 2017-03-04 11:22 | Emergency (ER) | payer MEDICAID ==
[2017-03-04] MEDS ORDERED: CLINDAMYCIN PHOSPHATE INJ 300 MG/2 ML SDV IM ONE (12:16)
--- NOTE | 2017-03-04 12:18 | ER Document Report ---
ED General - General Chief Complaint: Toothache Stated Complaint: TOOTH PAIN Time Seen by Provider: 03/04/17 11:57 TRAVEL OUTSIDE OF THE [place] IN LAST 30 DAYS: No - HPI Patient complains to provider of: Tooth pain Notes: Patient coming in for evaluation of tooth pain. Patient states has history of poor mentation has an appointment to see dentist this week however woke up this morning with swelling to the right lower jaw. Patient states she did take some Keflex that she had from a previous infection or coming in today because of the swelling denies any trouble breathing or swallowing. Patient denies any fevers - Related Data Allergies/Adverse Reactions: latex [Latex] Allergy (Intermediate, Verified 03/04/17 11:30) rash acetaminophen [From Tylenol] Allergy (Verified 03/04/17 11:30) tramadol HCl [From Ultram] Allergy (Verified 03/04/17 11:30) Past Medical History - Social History Smoking Status: Current Some Day Smoker Chew tobacco use (# tins/day): No Frequency of alcohol use: Occasional Drug Abuse: None Family History: Hypertension, Malignancy - Past Medical History Cardiac Medical History: Reports: Hx Hypertension Neurological Medical History: Reports: Hx Migraine Renal/ Medical History: Denies: Hx Peritoneal Dialysis Past Surgical History: Reports: Hx Section - Immunizations Hx Diphtheria, Pertussis, Tetanus Vaccination: Yes - 05/2012 Hx Pneumococcal Vaccination: 06/27/12 Review of Systems - Review of Systems Constitutional: No symptoms reported EENT: Other - Right jaw swelling Cardiovascular: No symptoms reported Respiratory: No symptoms reported Gastrointestinal: No symptoms reported Genitourinary: No symptoms reported Female Genitourinary: No symptoms reported Musculoskeletal: No symptoms reported Skin: No symptoms reported Hematologic/Lymphatic: No symptoms reported Neurological/Psychological: No symptoms reported Physical Exam - Vital signs Vitals: Temp Pulse Resp BP Pulse Ox 98.4 F 109 H 18 128/97 H 99 03/04/17 11:29 03/04/17 11:29 03/04/17 11:29 03/04/17 11:29 03/04/17 11:29 Interpretation: Normal - General General appearance: Appears well, Alert - HEENT Head: Normocephalic, Atraumatic Eyes: Normal Conjunctiva: Normal Cornea: Normal Pupils: PERRL Neck: Normal Notes: Patient coming in for swelling of the right jaw patient has diffuse dental caries there is no signs of gingival cellulitis or abscess. - Respiratory Respiratory status: No respiratory distress Chest status: Nontender Breath sounds: Normal Chest palpation: Normal - Cardiovascular Rhythm: Regular Heart sounds: Normal auscultation Murmur: No - Abdominal Inspection: Normal Distension: No distension Bowel sounds: Normal Tenderness: Nontender Organomegaly: No organomegaly - Back Back: Normal, Nontender - Extremities General upper extremity: Normal inspection, Nontender, Normal color, Normal ROM , Normal temperature General lower extremity: Normal inspection, Nontender, Normal color, Normal ROM , Normal temperature, Normal weight bearing. No: Jayne's sign - Neurological Neuro grossly intact: Yes Cognition: Normal Orientation: AAOx4 [place] Coma Scale Eye Opening: Spontaneous [place] Coma Scale Verbal: Oriented [place] Coma Scale Motor: Obeys Commands [place] Coma Scale Total: 15 Speech: Normal Motor strength normal: LUE, RUE, LLE, RLE Sensory: Normal - Psychological Associated symptoms: Normal affect, Normal mood - Skin Skin Temperature: Warm Skin Moisture: Dry Skin Color: Normal Course - Re-evaluation Re-evalutation: 03/04/17 14:53 No signs of obvious abscess patient does have swelling to the right jaw. At this time we will treat the patient with antibiotics patient is encouraged follow-up with a dentist return to the ER symptoms worsen. No signs of airway compromise at this time. - Vital Signs Vital signs: Temp Pulse Resp BP Pulse Ox 97.7 F 97 20 126/84 H 99 03/04/17 12:48 03/04/17 12:48 03/04/17 12:48 03/04/17 12:48 03/04/17 12:48 Discharge - Discharge Clinical Impression: Dental infection Condition: Good Disposition: HOME, SELF-CARE Instructions: Clindamycin ([facility]), Dental Infection or Abscess ([facility]), Oral Narcotic Medication ([facility]) Additional Instructions: It is very important to follow-up with the dental clinic that you have scheduled for further evaluation of your teeth. If your symptoms worsen please return to the ER. Please take the antibiotics as prescribed take Motrin over- the-counter for pain prescribed pain medication for severe pain. Prescriptions: Clindamycin HCl [Cleocin HCl] 150 mg PO QID 10 Days capsule Oxycodone HCl 5 mg PO Q6 #20 tablet Referrals: JAY MCGOWAN MD [Primary Care Provider] - Follow up as needed
[2017-03-04 12:54] VITALS: BP 126/84
== END 2017-03-04 12:54 | disposition home or self-care (01) ==
LOC: ER 11:22
DX: K04.7 Periapical abscess without sinus (principal); F17.200 Nicotine dependence, unspecified, uncomplicated; I10 Essential (primary) hypertension; Z88.6 Allergy status to analgesic agent; Z91.040 Latex allergy status
CPT/HCPCS: 99282

== ENCOUNTER 2018-05-15 08:51 | Emergency (ER) | payer SELFPAY ==
[2018-05-15] MEDS ORDERED: IBUPROFEN 800 MG TABLET PO ONE (09:07)
--- NOTE | 2018-05-15 09:09 | ER Document Report ---
HPI - HPI Patient complains to provider of: r foot injury Time Seen by Provider: 05/15/18 09:07 Onset: Yesterday Onset/Duration: Sudden Quality of pain: Achy Pain Level: 4 Context: Patient states that she was kicking wood at home like she was doing karate to impress her children. Patient states that she developed right mid foot tenderness. Patient complains of pain and swelling to the right foot. Associated Symptoms: Other - Right foot injury Exacerbated by: Standing, Movement, Walking Relieved by: Denies Similar symptoms previously: No Recently seen / treated by doctor: No - ROS ROS below otherwise negative: Yes Systems Reviewed and Negative: Yes All other systems reviewed and negative - REPRODUCTIVE Reproductive: DENIES: : - MUSCULOSKELETAL Musculoskeletal: REPORTS: Extremity pain, Swelling - DERM Skin Color: Normal Past Medical History - General Information source: Patient - Social History Smoking Status: Current Every Day Smoker Smoking Education Provided: Yes Frequency of alcohol use: Occasional Drug Abuse: None Occupation: None Lives with: Family Family History: Hypertension, Malignancy - Past Medical History Cardiac Medical History: Reports: Hx Hypertension Neurological Medical History: Reports: Hx Migraine Renal/ Medical History: Denies: Hx Peritoneal Dialysis Past Surgical History: Reports: Hx Section - Immunizations Hx Diphtheria, Pertussis, Tetanus Vaccination: Yes - 05/2012 Hx Pneumococcal Vaccination: 06/27/12 Vertical Provider Document - CONSTITUTIONAL Agree With Documented VS: Yes Exam Limitations: No Limitations General Appearance: WD/WN, No Apparent Distress - INFECTION CONTROL TRAVEL OUTSIDE OF THE [place] IN LAST 30 DAYS: No - HEENT HEENT: Atraumatic, Normocephalic - NECK Neck: Normal Inspection - RESPIRATORY Respiratory: No Respiratory Distress - CARDIOVASCULAR Pulses: Normal: Dorsalis pedis - MUSCULOSKELETAL/EXTREMETIES Musculoskeletal/Extremeties: MAEW, Tender - Right foot tenderness over cuboid bone with overlying area of swelling and ecchymosis, Edema, Eccymosis - NEURO Level of Consciousness: Awake, Alert, Appropriate Motor/Sensory: No Motor Deficit, No Sensory Deficit - DERM Integumentary: Warm, Dry, No Rash Course - Re-evaluation Re-evalutation: 05/15/18 09:43 Radiology report reviewed, no acute fracture. Will immobilize and advised patient to follow-up with orthopedics for further evaluation for possible occult injury. - Vital Signs Vital signs: Temp Pulse Resp BP Pulse Ox 97.9 F 115 H 20 135/87 H 100 05/15/18 08:54 05/15/18 08:54 05/15/18 08:54 05/15/18 08:54 05/15/18 08:54 - Diagnostic Test Radiology reviewed: Image reviewed, Reports reviewed Procedures - Immobilization Right Foot Pre-Proc Neuro Vasc Exam: Normal Immobilizer type: Yung wrap, Post-op shoe Performed by: PCT Post-Proc Neuro Vasc Exam: Normal Alignment checked and good: Yes Discharge - Discharge Clinical Impression: Right foot sprain Qualifiers: Encounter type: initial encounter Qualified Code(s): S93.601A - Unspecified sprain of right foot, initial encounter Condition: Stable Disposition: HOME, SELF-CARE Instructions: Yung Wrap ([facility]), Use of Crutches ([facility]), Oral Narcotic Medication ( [facility]), Post-Op Shoe ([facility]), Sprain ([facility]) Additional Instructions: Return immediately for any new or worsening symptoms Followup with your primary care provider, call tomorrow to make a followup appointment Follow-up with orthopedics for further evaluation, call tomorrow for an appointment Prescriptions: Oxycodone HCl [Oxy-Ir 5 mg Tablet] 5 mg PO Q6 PRN #10 tablet PRN Reason: Forms: Smoking Cessation Education Referrals: JAY MCGOWAN MD [ACTIVE STAFF] - Follow up as needed [facility] [Provider Group] - Follow up tomorrow
--- NOTE | 2018-05-15 09:39 | RADIOLOGY REPORT (SQ) ---
EXAM DESCRIPTION: FOOT RIGHT COMPLETE COMPLETED DATE/TIME: 05/15/2018 9:29 am REASON FOR STUDY: karate kicked wood, r lat mid foot pain COMPARISON: None. NUMBER OF VIEWS: Three views. TECHNIQUE: AP, lateral and oblique radiographic images acquired of the right foot. LIMITATIONS: None. FINDINGS: MINERALIZATION: Normal. BONES: No acute fracture or dislocation. No worrisome bone lesions. JOINTS: No effusions. SOFT TISSUES: No soft tissue swelling. No foreign body. OTHER: No other significant finding. IMPRESSION: 1. NEGATIVE STUDY OF THE RIGHT FOOT. TECHNICAL DOCUMENTATION: JOB ID: [id number] [email or web address]- All Rights Reserved Reading location - IP/workstation name: [email or web address]
[2018-05-15 10:58] VITALS: BP 132/84
== END 2018-05-15 10:58 | disposition home or self-care (01) ==
LOC: ER 08:51
DX: S93.601A Unspecified sprain of right foot, initial encounter (principal); W22.8XXA Striking against or struck by other objects, initial encounter; Y93.89 Activity, other specified; Y92.009 Unspecified place in unspecified non-institutional (private) residence as the place of occurrence of the external cause; F17.200 Nicotine dependence, unspecified, uncomplicated; I10 Essential (primary) hypertension
CPT/HCPCS: 99283

== ENCOUNTER 2018-08-15 15:42 | Emergency (ER) | payer SELFPAY ==
[2018-08-15] MEDS ORDERED: MUPIROCIN 2% OINTMENT 22 GM TP ONE (16:43)
--- NOTE | 2018-08-15 16:52 | ER Document Report ---
ED Skin Rash/Insect Bite/Abscs - General Chief Complaint: Insect Bite Stated Complaint: INSECT BITE Time Seen by Provider: 08/15/18 16:33 Mode of Arrival: Ambulatory Information source: Patient Notes: 28-year-old female presents to ED for complaint of a possible spider bite 2 days ago. It is on her right confucianist. There is a small honey colored sore to the right confucianist area. She states she has been applying peroxide with no improvement. She denies taking any medicine or anything else for the area. Patient is alert and oriented respirations regular and unlabored speaking in full sentences walks with a steady gait. TRAVEL OUTSIDE OF THE [place] IN LAST 30 DAYS: No - HPI Patient complains to provider of: Other - Small honey colored sore to the right confucianist area for 2 days Onset: Other - 2 days Onset/Duration: Gradual Quality of pain: Achy Severity: Moderate Pain Level: 3 Skin Character: Lesion Quality of rash: Painful Exacerbated by: Denies Relieved by: Denies Similar symptoms previously: No Recently seen / treated by doctor: No - Related Data Allergies/Adverse Reactions: latex [Latex] Allergy (Intermediate, Verified 05/15/18 08:52) rash acetaminophen [From Tylenol] Allergy (Verified 05/15/18 08:52) tramadol HCl [From Ultram] Allergy (Verified 05/15/18 08:52) Past Medical History - General Information source: Patient - Social History Smoking Status: Former Smoker Cigarette use (# per day): No Smoking Education Provided: No Frequency of alcohol use: Social Drug Abuse: None Lives with: Family Family History: Hypertension, Malignancy Patient has suicidal ideation: No Patient has homicidal ideation: No - Past Medical History Cardiac Medical History: Reports: Hx Hypertension Pulmonary Medical History: Reports: None EENT Medical History: Reports: None Neurological Medical History: Reports: Hx Migraine Endocrine Medical History: Reports: None Renal/ Medical History: Reports: None Malignancy Medical History: Reports: None GI Medical History: Reports: None Musculoskeletal Medical History: Reports None Skin Medical History: Reports None Psychiatric Medical History: Reports: None Traumatic Medical History: Reports: None Infectious Medical History: Reports: None Past Surgical History: Reports: Hx Section - Immunizations Immunizations up to date: Yes Hx Diphtheria, Pertussis, Tetanus Vaccination: Yes - 05/2012 Hx Pneumococcal Vaccination: 06/27/12 Review of Systems - Review of Systems Constitutional: No symptoms reported EENT: No symptoms reported Cardiovascular: No symptoms reported Respiratory: No symptoms reported Gastrointestinal: No symptoms reported Genitourinary: No symptoms reported Female Genitourinary: No symptoms reported Musculoskeletal: No symptoms reported Skin: Lesions - Right confucianist Hematologic/Lymphatic: No symptoms reported Neurological/Psychological: No symptoms reported -: Yes All other systems reviewed and negative Physical Exam - Vital signs Vitals: Temp Pulse Resp BP Pulse Ox 98.8 F 119 H 17 131/90 H 96 08/15/18 15:50 08/15/18 15:50 08/15/18 15:50 08/15/18 15:50 08/15/18 15:50 Interpretation: Normal - General General appearance: Appears well, Alert - HEENT Head: Normocephalic, Atraumatic Eyes: Normal Pupils: PERRL - Respiratory Respiratory status: No respiratory distress Chest status: Nontender Breath sounds: Normal Chest palpation: Normal - Cardiovascular Rhythm: Regular Heart sounds: Normal auscultation Murmur: No - Abdominal Inspection: Normal Distension: No distension Bowel sounds: Normal Tenderness: Nontender Organomegaly: No organomegaly - Back Back: Normal, Nontender - Extremities General upper extremity: Normal inspection, Nontender, Normal color, Normal ROM, Normal temperature General lower extremity: Normal inspection, Nontender, Normal color, Normal ROM, Normal temperature, Normal weight bearing. No: Jayne's sign - Neurological Neuro grossly intact: Yes Cognition: Normal Orientation: AAOx4 Elizabeth Coma Scale Eye Opening: Spontaneous Ridge Coma Scale Verbal: Oriented Elizabeth Coma Scale Motor: Obeys Commands Elizabeth Coma Scale Total: 15 Speech: Normal Motor strength normal: LUE, RUE, LLE, RLE Sensory: Normal - Psychological Associated symptoms: Normal affect, Normal mood - Skin Skin Temperature: Warm Skin Moisture: Dry Skin Color: Normal Skin irregularity: Lesion Location of irregularity: Face Character of irregularity: Erythematous Irregularity with: Swelling, Tenderness, Crusting - Honey crusted Course - Vital Signs Vital signs: Temp Pulse Resp BP Pulse Ox 98.6 F 92 17 118/79 97 08/15/18 17:05 08/15/18 17:05 08/15/18 15:50 08/15/18 17:05 08/15/18 17:05 Discharge - Discharge Clinical Impression: Lesion to right confucianist Condition: Stable Disposition: HOME, SELF-CARE Instructions: Family Physicians / Practices Additional Instructions: Impetigo You have a skin infection called impetigo. This infection is caused by germs growing between the skin layers. It spreads easily and is quite contagious. The usual treatment is with oral antibiotics, along with washing the sores and application of an antibiotic ointment. There's a new prescription antibiotic ointment which may allow some cases of impetigo to be treated without pills. Healing takes about a week. All involved areas should recover with no scarring. If there is significant worsening, or if new symptoms (such as dark urine, fever, chills, or red streaks) arise, call the doctor or return for re- examination. SOAP CLEANSING: Gently wash the wound daily using a mild soap liquid Dial no perfumes). Use warm water, rubbing gently until all debris, ooze, and crusting have been washed from the wound. Allow to dry briefly (about 10 minutes) after cleaning. Repeat this cleansing at least three times a day for the first two days and then once or twice a day. Bactroban Ointment Bactroban is very effective against the germs that cause infection within the skin. It's useful for impetigo and other superficial infections. Deeper infections require antibiotics by mouth or by shot. Apply the medicine three times a day for one week, or longer if your doctor has advised it. Stop the medicine and call your doctor if you develop large blisters, severe itching, increasing pain, swelling, fever, or spreading redness. FOLLOW-UP CARE: If you have been referred to a physician for follow-up care, call the physicians office for an appointment as you were instructed or within the next two days. If you experience worsening or a significant change in your symptoms, notify the physician immediately or return to the Emergency Department at any time for re-evaluation. Forms: Elevated Blood Pressure
[2018-08-15 17:06] VITALS: BP 118/79
== END 2018-08-15 17:45 | disposition home or self-care (01) ==
LOC: ER 15:42
DX: L98.9 Disorder of the skin and subcutaneous tissue, unspecified (principal); I10 Essential (primary) hypertension; Z91.040 Latex allergy status; Z88.6 Allergy status to analgesic agent
CPT/HCPCS: 99281; 87070; 87205; 87077; J3490

== ENCOUNTER 2020-06-01 11:07 | Emergency (ER) | payer SELFPAY ==
[2020-06-01 11:17] VITALS: BP 142/98
[2020-06-01] MEDS ORDERED: KETOROLAC TROMETHAMINE 60 MG/2 ML SDV IM ONE (11:40)
--- NOTE | 2020-06-01 11:42 | ER Document Report ---
HPI - HPI Time Seen by Provider: 06/01/20 11:36 Pain Level: 4 Notes: 30-year-old female presents to the emergency room for left lower tooth pain that started 1 day ago. Reports pain is 4 out of 5. Worse when she eats tough food, better with heat. Reports pain is 4 out of 5. Started oral penicillin, 500 mg tablet yesterday that she had left over. Patient is a smoker roughly half a pack to a pack a day. Denies any referred pain to her ear. Has not tried to find a dentist. Decreased eating but drinking without any issues. Last menstrual cycle was 05/30/2020. Has not tried any heat or icing. Denies fevers, chills, chest pain,palpitations, shortness of breath, dyspnea, nausea, vomiting, diarrhea, abdominal pain, hematuria,blurred vision, double vision, loss of vision, speech changes, LH, dizziness, syncope, headaches, wheezing, ST, URI, neck pain, weakness, bowel or bladder dysfunction, saddle anesthesia, numbness or tingling in bilateral upper or lower extremities equally, muscle paralysis, weakness in bilateral upper or lower extremities equally or rash. - CONSTITUTIONAL Constitutional: DENIES: Fever, Chills - REPRODUCTIVE Reproductive: DENIES: : Past Medical History - General Information source: Patient - Social History Smoking Status: Current Every Day Smoker Frequency of alcohol use: Social Family History: Hypertension, Malignancy Patient has homicidal ideation: No - Past Medical History Cardiac Medical History: Reports: Hx Hypertension Neurological Medical History: Reports: Hx Migraine Renal/ Medical History: Denies: Hx Peritoneal Dialysis Past Surgical History: Reports: Hx Section - Immunizations Immunizations up to date: Yes Hx Diphtheria, Pertussis, Tetanus Vaccination: Yes - 05/2012 Hx Pneumococcal Vaccination: 06/27/12 Vertical Provider Document - CONSTITUTIONAL Agree With Documented VS: Yes Exam Limitations: No Limitations General Appearance: WD/WN Notes: MEDICATIONS: I agree with the patient medications as charted by the RN. ALLERGIES: I agree with the allergies as charted by the RN. PAST MEDICAL HISTORY/PAST SURGICAL HISTORY: Reviewed and agree as charted by RN. SOCIAL HISTORY: Reviewed and agree as charted by RN. FAMILY HISTORY: No significant familial comorbid conditions directly related to patient complaint EXAM: Reviewed vital signs as charted by RN. PHYSICAL EXAMINATION: reviewed vital signs by RN GENERAL: Well-appearing, well-nourished and in no acute distress. HEAD: Atraumatic, normocephalic. EYES: Pupils equal round and reactive to light, extraocular movements intact, conjunctiva are normal. ENT: Nares patent, oropharynx clear without exudates. Moist mucous membranes. TM with effusion bilaterally, no erythema. TMs intact. #19, 18, gingiva with swelling, erythema and induration. No drainage or open wounds. No fluctuance. No facial swelling. Poor oral dentition, leftlower jaw with moderate dental caries, no definite swelling or effusion. no trismus noted. Uvula is midline NECK: Normal range of motion, supple without lymphadenopathy LUNGS: Breath sounds clear to auscultation bilaterally and equal. No wheezes rales or rhonchi. HEART: Regular rate and rhythm without murmurs ABDOMEN: Soft, nontender, nondistended abdomen. No guarding, no rebound. No masses appreciated. Female : deferred Musculoskeletal: Normal range of motion, no pitting or edema. No cyanosis. NEUROLOGICAL: Cranial nerves grossly intact. Normal speech, normal gait. Normal sensory, motor exams PSYCH: Normal mood, normal affect. SKIN: Warm, Dry, normal turgor, no rashes or lesions noted. - INFECTION CONTROL TRAVEL OUTSIDE OF THE [place] IN LAST 30 DAYS: No Course - Re-evaluation Re-evalutation: 06/01/20 11:49 Afebrile, slightly tachycardic I think this is related to the pain, Toradol 60 mg given IM for pain control. Otherwise in no distress. Nurses notes reviewed. Discussed with patient that she does need to start antibiotic therapy, eat soft foods, follow-up with a dentist in the next 24 to 48 hours for further evaluation. If you experience any worsening symptoms return to the emergency room such as worsening pain, severe headache, vomiting, etc. After performing a Medical Screening Examination, I estimate there is LOW risk for a DEEP SPACE INFECTION (e.g., SIMI'S ANGINA OR RETROPHARYNGEAL ABSCESS), MENINGITIS, INTRACRANIAL HEMORRHAGE, or AIRWAY COMPROMISE, thus I consider the discharge disposition reasonable. Also, there is no evidence or peritonitis, sepsis, or toxicity. I have reevaluated this patient multiple times and no significant life threatening changes are noted. The patient and I have discussed the diagnosis and risks, and we agree with discharging home with close follow-up with the understanding that symptoms and presentations can change. We also discussed returning to the Emergency Department immediately if new or worsening symptoms occur. We have discussed the symptoms which are most concerning (e.g., changing or worsening pain, trouble swallowing or breathing, neck stiffness or fever) that necessitate immediate return. - Vital Signs Vital signs: Temp Pulse Resp BP Pulse Ox 98.3 F 114 H 16 142/98 H 97 05/31/20 11:15 05/31/20 11:15 05/31/20 11:15 05/31/20 11:15 05/31/20 11:15 - Laboratory Results Critical Laboratory Results Reviewed: No Critical Results - Radiology Results Critical Radiology Results Reviewed: No Critical Results Discharge - Discharge Clinical Impression: Toothache Condition: Stable Disposition: HOME, SELF-CARE Instructions: Dentist, Toothache ([facility]), Clindamycin ([facility]), [facility] Additional Instructions: TOOTHACHE: Your pain is due to dental decay. The tooth must be repaired in order for you to feel better. You will, therefore, be referred to a dentist. We do not have dentists on the staff at [facility]. Severe swelling or drainage around a tooth usually means a dental abscess. This also requires evaluation and treatment by the dentist, but antibiotics may be prescribed while awaiting dental treatment. You should be rechecked immediately if you develop major swelling of the face, increasing pain, a lump in the jaw or gums, headache, difficulty swallowing, or fever. CLINDAMYCIN: You have been given a prescription for the antibiotic clindamycin. It is often prescribed for infections in the mouth, such as dental infections or abscesses, and for skin infections due to MRSA. It's important that you take all the medication, unless instructed otherwise by your physician. Failure to complete the entire course can result in relapse of your condition. Common side effects of antibiotics include nausea, intestinal cramping, or diarrhea. Women may develop vaginal yeast infections, and babies can get yeast (thrush) in the mouth following the use of antibiotics. Contact your physician if you develop significant side effects from this medication. Allergy to this antibiotic can result in hives, wheezing, faintness, or itching. If symptoms of allergy occur, stop the medication and call the doctor. FOLLOW-UP CARE: You have been referred for follow-up care to the dentists listed below. Call the dentists office for an appointment as you were instructed or within the next two days. If you experience worsening or a significant change in your symptoms, notify the physician immediately or return to the Emergency Department at any time for re-evaluation. [facility] [address] [place], [place] Sid mornings, by appointment [facility] [address] [place] [address] [facility] [address] [facility] [address] [facility] [address] [email or web address] [address] [place] [address] Sunday- 8:00am to 5:00 pm Will see patients from other [facility]. Charges based on income and family size and accepts Medicare, Medicaid, and Insurances Will pull molars [facility] [id number] Hours of Operation 8:00 am - 4:30 pm weekdays The following dental offices accept Medicaid: [facility] Dr. Toro Dr. Weathers Dr. [place]o Dr. Jewell Mauri Newton L[place], and [place] [facility] Dr. Cruz ([place]) Dr. Garces ([place]) [facility] Drs. Gerard and Addy ([place]) Dr. Reynoso ([place]) [facility] Dr. Howe ([place]) Drs. Hernandez and ([place]) Medicaid Care Line Prescriptions: Clindamycin HCl 300 mg PO Q6H #28 capsule Forms: Parent Work Note Referrals: ALEX GE MD [COMMUNITY BASED STAFF] - Follow up as needed
== END 2020-06-01 11:56 | disposition home or self-care (01) ==
LOC: ER 11:07
DX: K08.9 Disorder of teeth and supporting structures, unspecified (principal); F17.210 Nicotine dependence, cigarettes, uncomplicated; I10 Essential (primary) hypertension
CPT/HCPCS: 99284; 96372; J1885